=== PATIENT | male | born 1980 | race Hispanic/Latino ===

== ENCOUNTER 2019-05-21 12:52 | Emergency (ER) | payer OTHER | END 2019-05-21 13:35 | LOC: EDH 12:52 | DX: Z02.89 Encounter for other administrative examinations (principal); Z72.0 Tobacco use ==

== ENCOUNTER 2020-02-29 01:11 | Emergency (ER) | payer OTHER ==
[2020-02-29] MEDS ORDERED: IBUPROFEN 200 MG TAB ONE (01:59)
== END 2020-02-29 02:22 ==
LOC: EEVIPCON 01:11 → EDH 01:11
DX: S60.221A Contusion of right hand, initial encounter (principal); G89.28 Other chronic postprocedural pain; M79.641 Pain in right hand; F20.9 Schizophrenia, unspecified; F31.9 Bipolar disorder, unspecified; F41.9 Anxiety disorder, unspecified; W22.8XXA Striking against or struck by other objects, initial encounter; Y93.89 Activity, other specified; Y92.89 Other specified places as the place of occurrence of the external cause; Y99.8 Other external cause status
CPT/HCPCS: 73130